=== PATIENT | male | born 2000 | race Caucasian/White ===

== ENCOUNTER 2020-10-04 15:45 | Inpatient (IN) | payer BC, OTHER, SELFPAY ==
[~2020-10-04 15:45] MED LIST: Iopamidol-370 76% 500 ML 1 ML ONE
[2020-10-04] MEDS ORDERED: Boostrix 0.5 ML (Tdap) VIAL ONE (15:49)
[2020-10-04 16:18] LABS: #Basophils 0.1 thou/uL (0.0-0.2); #Eosinphils 0.2 thou/uL (0.0-0.7); #Monocytes 1.3 thou/uL (0.11-0.59); #Neutrophils 10.7 thou/uL (1.40-6.50); %Basophils 0.4 % (0.0-1.0); %Eosinophils 1.1 % (0.0-10.0); %Lymphocytes 14.2 % (28.0-48.0); %Monocytes 9.2 % (0.0-4.0); %Neutrophils 75.1 % (31.0-61.0); Hemoglobin 15.2 g/dL (14.0-18.0); Mean Corpuscular HGB CONC 34.3 g/dL (32.0-36.0); Mean Corpuscular Hemoglobin 31.3 pg (25.0-35.0); Mean Corpuscular Volume 91.4 fL (78.0-98.0); Mean Platelet Volume 9.9 fL (7.4-10.4); Platelet Count 241 thou/uL (130-400); RBC Distribution Width 11.5 % (11.5-14.5); Red Blood Cell (RBC) Count 4.84 mill/uL (4.00-5.20); White Blood Cell (WBC) Count 14.2 thou/uL (4.8-10.8)
[2020-10-04 16:27] LABS: ALT (SGPT) 28 U/L (8-55); AST (SGOT) 33 U/L (5-34); Alkaline Phosphatase 107 U/L (50-130); Anion Gap 15 mmol/L (10-20); BUN (Urea Nitrogen) 19 mg/dL (8.9-20.6); Bilirubin, Total 0.8 mg/dL (0.2-1.2); Calc. Creatinine Clearance 0 mL/min (70-130); Calcium 9.9 mg/dL (7.8-10.44); Carbon Dioxide 23 mmol/L (22-29); Chloride 104 mmol/L (98-107); Globulin 3.2 g/dL (2.4-3.5); Glucose 103 mg/dL (70-105); Potassium 4.4 mmol/L (3.5-5.1); Protein, Total 8.2 g/dL (6.0-8.3); Sodium 138 mmol/L (136-145)
[2020-10-04] MEDS ORDERED: Morphine 4 MG/ML VIAL ONE ×2 (16:35→17:33)
[2020-10-04] MEDS ORDERED: Fentanyl 100 MCG/2 ML VIAL ONE ×2 (18:10→20:04)
[2020-10-04 18:35] LABS: SARS-CoV-2 NAA Rapid Test Not Detected (NotDetected)
[2020-10-04] MEDS ORDERED: Ondansetron PF 4 MG/2 ML Vial IVP PRN (20:08)
[2020-10-04] MEDS ORDERED: Ondansetron ODT 4 MG TAB PO PRN (20:08)
[2020-10-04] MEDS ORDERED: Morphine 2 MG/ML VIAL SLOW IVP PRN (20:08)
[2020-10-04] MEDS ORDERED: hydrALAZINE 20 MG/ML VIAL SLOW IVP PRN (20:08)
[2020-10-04] MEDS ORDERED: Promethazine HCl 25 MG/ML VIAL IM PRN ×2 (20:08→20:41)
[2020-10-04] MEDS ORDERED: Dextrose 5% in Water 1,000 ML IV PRN (20:08)
[2020-10-04] MEDS ORDERED: Cyclobenzaprine 10 MG TAB PO PRN (20:08)
[2020-10-04] MEDS ORDERED: Dextrose 50% Abboject 50 ML SYRINGE SLOW IVP PRN (20:08)
[2020-10-04] MEDS ORDERED: traMADol HCl 50 MG TAB PO PRN ×2 (20:08)
[2020-10-04] MEDS ORDERED: Neomycin-Polymyxin 1 ML AMP ONE (20:32)
[2020-10-04] MEDS ORDERED: EPINEPHrine 1 MG/ML AMP ONE ×2 (20:32)
[2020-10-04] MEDS ORDERED: Bupivacaine PF 0.5% 30 ML VIAL ONE (20:32)
[2020-10-04] MEDS ORDERED: Ondansetron HCl/PF 4 MG/2 ML Vial IVP PRN (20:41)
[2020-10-04] MEDS ORDERED: Promethazine HCl 25 MG/ML VIAL SLOW IVP PRN (20:41)
[2020-10-04] MEDS ORDERED: Sodium Chloride 0.9% 1,000 ML IV SCH (21:00)
[2020-10-04] MEDS ORDERED: PHENYLEPHRINE-NS 100 MCG/ML 10 ML SYRINGE ONE (21:07)
[2020-10-04] MEDS ORDERED: Succinylcholine 200 MG/10 ml SYRINGE FS ONE (21:07)
[2020-10-04] MEDS ORDERED: Rocuronium Bromide 10 MG/ML (10ML VIAL) ONE (21:07)
[2020-10-04] MEDS ORDERED: Ketorolac Tromethamine 30 MG/ML VIAL ONE (21:07)
[2020-10-04] MEDS ORDERED: PROPOFOL 200 MG/20 ML VIAL ONE (21:07)
[2020-10-04] MEDS ORDERED: Dexamethasone 20 MG/5 ML VIAL ONE (21:07)
[2020-10-04] MEDS ORDERED: Lidocaine 1% PF 5 ML VIAL ONE (21:07)
[2020-10-04] MEDS ORDERED: Ondansetron PF 4 MG/2 ML Vial ONE (21:07)
[2020-10-04] MEDS ORDERED: HYDROmorphone 2 MG/ML VIAL ONE (21:26)
[2020-10-04] MEDS: Famotidine 20 MG TAB PO SCH (23:54)
[2020-10-04] MEDS: Ibuprofen 600 MG TAB PO SCH (23:57)
[2020-10-04] MEDS: CEFAZOLIN 2 GM in Premix Bag 1 BAG IVPB SCH (23:57)
[2020-10-04] MEDS: Acetaminophen 500 MG TAB PO SCH (23:57)
[2020-10-04] MEDS ORDERED: ceFAZolin 1 GM/D5W 1 GM in Premix Bag 1 BAG IVPB SCH (23:59)
[2020-10-05 00:04] VITALS: BMI 25.0
[2020-10-05] MEDS: Ibuprofen 600 MG TAB PO SCH ×2 (05:08→14:09)
[2020-10-05] MEDS: Acetaminophen 500 MG TAB PO SCH ×2 (05:08→14:10)
[2020-10-05 07:08] LABS: Anion Gap 13 mmol/L (10-20); BUN (Urea Nitrogen) 15 mg/dL (8.9-20.6); Calc. Creatinine Clearance 158 mL/min (70-130); Calcium 8.9 mg/dL (7.8-10.44); Carbon Dioxide 24 mmol/L (22-29); Chloride 104 mmol/L (98-107); Glucose 121 mg/dL (70-105); Potassium 4.9 mmol/L (3.5-5.1); Sodium 136 mmol/L (136-145)
[2020-10-05 07:14] LABS: #Lymphocytes 0.9 thou/uL (1.20-3.40); #Monocytes 1.3 thou/uL (0.11-0.59); #Neutrophils 11.4 thou/uL (1.40-6.50); %Basophils 0.1 % (0.0-1.0); %Lymphocytes 6.7 % (28.0-48.0); %Monocytes 9.3 % (0.0-4.0); %Neutrophils 83.9 % (31.0-61.0); Hemoglobin 13.6 g/dL (14.0-18.0); Mean Corpuscular HGB CONC 33.5 g/dL (32.0-36.0); Mean Corpuscular Hemoglobin 30.9 pg (25.0-35.0); Mean Corpuscular Volume 92.2 fL (78.0-98.0); Mean Platelet Volume 10.2 fL (7.4-10.4); Platelet Count 246 thou/uL (130-400); RBC Distribution Width 11.5 % (11.5-14.5); Red Blood Cell (RBC) Count 4.41 mill/uL (4.00-5.20); White Blood Cell (WBC) Count 13.6 thou/uL (4.8-10.8)
[2020-10-05 07:59] VITALS: TEMP 97.7
[2020-10-05] MEDS: CEFAZOLIN 2 GM in Premix Bag 1 BAG IVPB SCH (08:31)
[2020-10-05] MEDS: Famotidine 20 MG TAB PO SCH (10:14)
[2020-10-05 11:39] VITALS: BP 130/68
== END 2020-10-05 16:24 | disposition home or self-care (01) | DRG 581 ==
LOC: ERS 15:45 → SURG B 20:08
PROVIDERS: ADMIT Surgery; ATTEND Surgery
PROC: 0QDD0ZZ Extraction of Right Patella, Open Approach (ICD-10-PCS; principal; 2020-10-04)
DX: S81.011A Laceration without foreign body, right knee, initial encounter (principal); Z20.822 Contact with and (suspected) exposure to COVID-19; S40.811A Abrasion of right upper arm, initial encounter; V28.4XXA Motorcycle driver injured in noncollision transport accident in traffic accident, initial encounter; Y92.410 Unspecified street and highway as the place of occurrence of the external cause; S40.812A Abrasion of left upper arm, initial encounter; S80.812A Abrasion, left lower leg, initial encounter; S80.811A Abrasion, right lower leg, initial encounter
CPT/HCPCS: 36415; 70450; 71260; 72125; 74177; 80048; 80053; 85025; 90471; 90715; 96365; 96374; 96375; 96376; G0390; J0171; J0690; J1100; J1170; J1885; J2270; J2405; J2704; J3010; Q9967; S0020; U0002